=== PATIENT | female | born 1995 ===

== ENCOUNTER → 2018-04-27 01:45 | Observation (INO) ==
[2018-04-26 23:16] LABS: Amphetamine Screen,Urine Negative ng/mL (Cutoff=1000); Barbiturate Screen,Urine Negative ng/mL (Cutoff=200); Benzodiazepines Screen,Urine Negative ng/mL (Cutoff=200); Cannabinoid Screen,Urine Negative ng/mL (Cutoff = 50); Cocaine Screen,Urine Negative ng/mL (Cutoff= 300); Opiate Screen,Urine Negative ng/mL (Cutoff=300); Phencyclidine Screen,Urine Negative ng/mL (Cutoff=25)
[2018-04-27 01:27] LABS: Candida DNA Not Detected (Not Detect); Gardnerella DNA ***DETECTED*** (Not Detect); Trichomonas DNA Not Detected (Not Detect)
--- NOTE | 2018-04-27 01:39 | OB/GYN Progress Note ---
Date of Encounter: 04/27/18 Time of Encounter: 01:36 - Assessment and Plan (1) 38 weeks gestation of Current Visit: Yes Status: Acute NST reactive (2) Bacterial vaginosis Current Visit: Yes Status: Acute Negative work-up for ROM. BV noted on vaginosis panel. Discharge home with rx Flagyl and precautions. Follow-up as scheduled. Subjective - Subjective Interval history: 23 year-old presenting at 38w2d with c/o leaking fluid. She reports small amounts of white fluid leaking since about 2200. No large gush. No bleeding. No regular contractions. Good FM. She gets care with Dr. Sheets in [place]. She reports the has been uncomplicated. Antepartum ROS: loss of fluid, movement normal, no vaginal bleeding, no contractions Objective - Vital Signs Vital Signs: Intake and Output 04/26/18 04/26/18 04/27/18 15:59 23:59 07:59 Other: Weight 126.5 kg - Exam FHR: category 1 FHR comments: NST reactive Auscultation: bilateral: normal Abdomen: Present: soft, gravid Uterus: Absent: tenderness Cervical dilation: 3 Cervix effacement: 80 station: -2 Comments: SSE with frothy white and green discharge in vault. Negative nitrazine, negative pooling, negative ferning. Vaginosis panel collected. - Labs Labs: Abnormal lab results Gardnerella DNA Probe DETECTED (Not Detect) A 04/26/18 23:55
== END | disposition home or self-care (01) ==
LOC: 1NENULAB
PROVIDERS: ADMIT Registered Nurse; ATTEND Registered Nurse